=== PATIENT | male | born 1995 | race Caucasian/White ===

== ENCOUNTER 2023-05-27 21:45 | Emergency (ER) | payer OTHER, SELFPAY ==
[2023-05-27 21:54] VITALS: BP 126/91; PULSE 108; RESP 18; TEMP 36.6; O2SAT 100; BMI 23.0
--- NOTE | 2023-05-27 22:05 | CRLHL7_ITS ---
For Patients: As a result of the Century Cures Act, medical imaging exams and procedure reports are released immediately into your electronic medical record. You may view this report before your referring provider. If you have questions, please contact your health care provider. INDICATION: Pain after being hit with a baseball. COMPARISON: None available. TECHNIQUE: CT examination of the head was performed with 3 mm thick axial and 2 mm thick coronal and sagittal sections without intravenous contrast. Images were obtained from the vertex of the skull through the skull base, and I examined the images with the brain and bone windows. Please note that all CT scans at this facility use dose modulation, iterative reconstruction, and/or weight-based dosing when appropriate to reduce radiation dose to as low as reasonably achievable. FINDINGS: : The brain is normal in appearance for the patient`s age on today`s study, with no sign of mass lesion, mass effect, hemorrhage, or edema. The ventricles and sulci are normal in appearance for the patient`s age. Note is made of a partially empty sella, an unusual finding for a patient of this age. There is no sign of any abnormality elsewhere in the brain to suggest idiopathic intracranial hypertension which is sometimes associated with an empty sella. The visualized portions of the orbits are normal in appearance. The visualized portions of the paranasal sinuses and mastoids are clear. The osseous structures are normal in their appearance with no sign of abnormality in the skull base or calvarium. IMPRESSION: No sign of closed-head injury. Normal CT appearance of the brain for patient age. Partially empty sella, a finding of uncertain significance. Please note that all CT scans at this facility use dose modulation, iterative reconstruction, and/or weight-based dosing when appropriate to reduce radiation dose to as low as reasonably achievable. Dictated by Albert Leiva MD @ 05/27/2023 10:55:17 PM (Electronically Signed)
--- NOTE | 2023-05-27 22:06 | ED_ITS ---
HPI - Head Injury General Chief complaint: Head Injury/Pain Stated complaint: got hit with a soft ball Time Seen by Provider: 05/27/23 22:01 History of Present Illness HPI Narrative: This 28-year-old male comes in stating that he was hit in the left episcopalian region of his head by a baseball. It was a thrown baseball that hit him in this area. He states that it knocked him off of his feet. He did not have loss of consciousness. He was able to get up and ambulate and has not had any vomiting or sign of neurologic deficit. He does not complain of a severe headache. Related Data Home Medications Medication Instructions Recorded Confirmed No Known Home Medications 05/27/23 05/27/23 Allergies Allergy/AdvReac Type Severity Reaction Status Date / Time No Known Drug Allergies Allergy Verified 05/27/23 21:53 Review of Systems Status of ROS: Reports: 10 or more systems reviewed and unremarkable except as noted in History and below Narrative: Constitutional: No fevers, no weight gain or loss. Eyes: No discharge. No vision changes. HENT: No congestion, no sore throat, no ear pain. Cardiovascular: No chest pain, no palpitations. Respiratory: No shortness of breath, no wheezes, no cough. Gastrointestinal: No abdominal pain, no vomiting, no diarrhea. Genitourinary: No dysuria, no hematuria. Musculoskeletal: Normal range of motion. Skin: No rashes, no pruritis. Neurological: No dizziness, weakness, sensory change, speech change. Endo/Heme/Allergies: No bruising or bleeding. No polydipsia. Pysch: no suicidality, no anxiety, no insomnia. All other systems reviewed and are negative. PFSH PFS Social History Smoking Status: Never smoker Do you use any of these nicotine containing products: None Second hand tobacco smoke exposure: No How often do you have a drink containing alcohol: 2-4 times a month How many standard drinks containing alcohol do you have on a typical day: 3 or 4 How often do you have six or more drinks on one occasion: Monthly AUDIT-C Alcohol total score: 5 Non-prescribed substance use: denies use service: No Exam Narrative: Exam Narrative: Constitutional: Well-developed, well-nourished, no acute distress. HEENT: Normocephalic, atraumatic. Tenderness in the left temporal region with mild swelling. No skin injury. Neck: Normal range of motion. Nontender. Supple. Heart: Intact distal pulses. Lungs: No chest discomfort. No wheezes, rhonchi, or rales. Abdomen: Nontender. Back: Normal range of motion. Extremities: Normal range of motion. No injury. Skin: Intact. No rash. Warm. No erythema or pallor. Neurologic: No altered sensation. No weakness. Alert and oriented. Psychiatric: No suicidality. No anxiety or depression. No insomnia. Nursing notes and vitals signs are reviewed. Const: Vital Signs, click to edit/add: Vital Signs - 24 hr 05/27/23 21:54 Temperature 97.8 F Pulse Rate [Pulse Oximeter] 108 H Respiratory Rate 18 Blood Pressure [Le ft Upper Arm] 126/91 H Pulse Oximetry 100 Course Vital Signs Vital signs: Initial Vital Signs Temperature 97.8 F 05/27/23 21:54 Temperature Source Temporal Artery Scan 05/27/23 21:54 Pulse Rate 108 H 05/27/23 21:54 Pulse Rhythm Regular 05/27/23 21:54 Respiratory Rate 18 05/27/23 21:54 Blood Pressure 126/91 H 05/27/23 21:54 Blood Pressure Mean 102 05/27/23 21:54 Blood Pressure Position Supine 05/27/23 21:54 Pulse Oximetry 100 05/27/23 21:54 Vital Signs Temperature 97.8 F 05/27/23 21:54 Pulse Rate 108 H 05/27/23 21:54 Respiratory Rate 18 05/27/23 21:54 Blood Pressure 126/91 H 05/27/23 21:54 Pulse Oximetry 100 05/27/23 21:54 Temperature 97.8 F 05/27/23 21:54 Pulse Rate 108 H 05/27/23 21:54 Respiratory Rate 18 05/27/23 21:54 Blood Pressure 126/91 H 05/27/23 21:54 Pulse Oximetry 100 05/27/23 21:54 MDM - Head Injury MDM Narrative Medical decision making narrative: This patient comes in reporting being hit in the head by a baseball that was thrown. He did not have loss of consciousness. He is not showing any sign of neurologic deficit. He does not complain of severe headache and has not had any nausea or vomiting. A CT scan of the head is obtained and this returns with no sign of fracture or intracranial injury. This was reassuring to the patient. He is okay to be discharged home. Imaging Data CT scan - head: Radiologist's impression: No sign of closed-head injury. Normal CT appearance of the brain for patient age. Partially empty sella, a finding of uncertain significance. Discharge Plan Discharge Clinical Impression: Closed head injury Patient Disposition: Home, Self-Care Condition: Stable Additional Instructions: Use [id number] medicines as needed and directed. Increase activity as tolerated. Follow up with MD or return if worsening. Prescriptions: No Action No Known Home Medications Follow Up/Referrals: Provider,Not a Local [Primary Care Provider] - Stand Alone Forms: [employer] Info Instructions
[2023-05-27 23:05] VITALS: BP 120/80; PULSE 78; RESP 16; O2SAT 96
== END 2023-05-27 23:10 | disposition home or self-care (01) ==
PROVIDERS: Emergency Provider Emergency Medicine Emergency Medical Services
DX: S09.90XA Unspecified injury of head, initial encounter (principal); W21.03XA Struck by baseball, initial encounter
CPT/HCPCS: 70450; 99283; 99284